=== PATIENT | female | born 1970 | race Two or more races ===

== ENCOUNTER 2017-09-21 15:34 | Emergency (ER) | payer OTHER ==
--- NOTE | 2017-09-21 17:02 | RAD ---
INDICATION: Right knee injury. TECHNIQUE: 2 views of the right knee were obtained. FINDINGS: The bones are in normal alignment. There is a small joint effusion present. No fracture is seen. Joint spaces appear maintained. IMPRESSION: NO EVIDENCE FOR FRACTURE, IF THE PATIENT'S SYMPTOMS PERSIST RECOMMEND FOLLOW-UP IMAGING.
--- NOTE | 2017-09-21 18:08 | ED ---
Lower Extremity - HPI Summary HPI Summary: 46-year-old female presents with right knee injury today. States she hyperextended it yesterday. States she has diffuse knee pain worst on posterior aspect of knee. She states has not been able to place weight on it due to pain. She denies any popping or locking. States the knee feels like it is going to give out. She denies any previous injury to the knee. No numbness or tingling. No other injury. He ibuprofen for pain. 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 She has no medical conditions. - History of Current Complaint Chief Complaint: EDExtremityLower Stated Complaint: RT KNEE INJURY Time Seen by Provider: 09/21/17 17:42 Pain Intensity: 6 - Allergies/Home Medications Allergies/Adverse Reactions: Allergies Allergy/AdvReac Type Severity Reaction Status Date / Time No Known Allergies Allergy Verified 09/21/17 15:53 Home Medications: Home Medications ALPRAZolam TAB* [Xanax TAB*] 0.5 mg PO TID PRN 09/21/17 [History Confirmed 09/21] Sertraline* [Zoloft*] 150 mg PO DAILY 09/21/17 [History Confirmed 09/21/17] PMH/Surg Hx/FS Hx/Imm Hx Endocrine/Hematology History: Denies: Hx Diabetes Cardiovascular History: Denies: Hx Hypertension, Hx Pacemaker/ICD History: Denies: Hx Renal Disease Sensory History: Denies: Hx Hearing Aid Psychiatric History: Denies: Hx Panic Disorder - Cancer History Hx Chemotherapy: No Hx Radiation Therapy: No - Surgical History Surgery Procedure, Year, and Place: 2011,. [facility] - Infectious Disease History: No Infectious Disease History: Denies: Traveled Outside the [place] in Last 30 Days - Family History Known Family History: Positive: Hypertension - Social History Alcohol Use: None Substance Use Type: Reports: None Smoking Status (MU): Current Every Day Smoker Review of Systems Negative: Fever Negative: Chest Pain Negative: Shortness Of Breath Positive: Myalgia - right knee pain All Other Systems Reviewed And Are Negative: Yes Physical Exam Triage Information Reviewed: Yes Vital Signs On Initial Exam: Initial Vitals Temp Pulse Resp BP Pulse Ox 98.4 F 67 17 166/96 97 09/21/17 15:51 09/21/17 15:51 09/21/17 15:51 09/21/17 15:51 09/21/17 15:51 Vital Signs Reviewed: Yes Appearance: Positive: Well-Appearing Skin: Positive: Warm, Dry Head/Face: Positive: Normal Head/Face Inspection Eyes: Positive: Normal, Conjunctiva Clear ENT: Positive: Pharynx normal Respiratory/Lung Sounds: Positive: Clear to Auscultation, Breath Sounds Present Cardiovascular: Positive: Normal, RRR Musculoskeletal: Positive: Limited @ - Right knee, Other - Tenderness over right knee, negative ballottement, negative anterior drawer and negative Leo's, good pulses, sensation grossly intact Neurological: Positive: Normal Psychiatric: Positive: Normal Diagnostics - Vital Signs Vital Signs Temp Pulse Resp BP Pulse Ox 09/21/17 15:51 98.4 F 67 17 166/96 97 - Laboratory Lab Statement: Any lab studies that have been ordered have been reviewed, and results considered in the medical decision making process. - Radiology knee Xray Interpretation: No Acute Changes Radiology Interpretation Completed By: Radiologist Lower Extremity Course/Dx - Course Course Of Treatment: 46-year-old female presents with right knee injury today. States she hyperextended it yesterday. States she has diffuse knee pain worst on posterior aspect of knee. She states has not been able to place weight on it due to pain. She denies any popping or locking. States the knee feels like it is going to give out. She denies any previous injury to the knee. No numbness or tingling. No other injury. He ibuprofen for pain. 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 She has no medical conditions. On exam has tenderness over right knee. Negative ballotments. Negative anterior and mcurray. X-ray shows no fx. gave knee immobilizer will have follow-up with orthopedic. Patient understands and agrees with plan. - Diagnoses Differential Diagnosis/HQI/PQRI: Positive: Fracture (Closed), Sprain, Strain Provider Diagnoses: Right knee pain Discharge - Sign-Out/Discharge Documenting (check all that apply): Patient Departure - Discharge Plan Condition: Good Disposition: HOME Prescriptions: Ibuprofen TAB* [Motrin TAB* 800 MG] 800 mg PO Q6H #20 tab Patient Education Materials: Knee Pain (ED) Referrals: Siva Dunham MD [Primary Care Provider] - Whit Helton MD [Medical Doctor] - Additional Instructions: Keep immobilizer on area, use crutches as needed Take ibuprofen or Tylenol every [address] ice on area Elevate If no improvement in a week follow up with ortho Return to ED if develop any new or worsening symptoms - Billing Disposition and Condition Condition: GOOD Disposition: Home
[2017-09-21 19:17] VITALS: BP 148/82
== END 2017-09-21 19:00 | disposition home or self-care (01) ==
LOC: ED 15:34
DX: S89.91XA Unspecified injury of right lower leg, initial encounter (principal); X50.0XXA Overexertion from strenuous movement or load, initial encounter; Y92.9 Unspecified place or not applicable; F17.200 Nicotine dependence, unspecified, uncomplicated
CPT/HCPCS: 99282

== ENCOUNTER 2018-01-06 13:54 | Day surgery (SDC) | payer OTHER ==
--- NOTE | 2017-12-25 23:11 | HP ---
AMENDED REPORT NOW INCLUDES DESIGNATED COSIGNER PREOPERATIVE HISTORY AND PHYSICAL: DATE OF ADMISSION/SURGERY: 01/06/18 DATE OF OFFICE VISIT: 12/24/17 ATTENDING SURGEON: Dr. Barndan Stewart.* (DICTATED BY MARILU FITZGERALD) PROCEDURE: Right knee arthroscopic surgery, partial meniscectomy. CHIEF COMPLAINT: Right knee pain. HISTORY OF PRESENT ILLNESS: Vibha is a 47-year-old female, who presents to the clinic for followup of right knee injury that occurred on 09/20/17 where she had extended her knee and fell down. She is using immobilizer and is on antiinflammatories. She has failed conservative measures. Therefore, Dr. Stewart got an MRI. She is here for MRI results. She continues to have swelling and a sharp pain in the posterior aspect of her knee and she has some block of range of motion. She denies numbness, tingling, fevers, chills, and is doing well otherwise. PAST MEDICAL HISTORY: Positive for anxiety, depression, and degenerative disk disease of her C-spine. PAST SURGICAL HISTORY: and cervical cerclage. The patient denies prior complications with anesthesia. MEDICATIONS: 1. Zoloft 100 mg 1 by mouth every day. 2. Xanax 0.5 mg 1 by mouth as needed 30 minutes before bed. FAMILY HISTORY: Unknown because she is adopted. SOCIAL HISTORY: She denies tobacco use, alcohol use. She is right-hand dominant. REVIEW OF SYSTEMS: A 14-point review of systems was reviewed with the patient. Positive for current complaint, otherwise negative. Denies fevers, chills, dyspnea, shortness of breath, history of DVT or PE, history of bleeding disorder. PHYSICAL EXAMINATION GENERAL: A 47-year-old, well-developed, well-nourished female, in no acute distress. Alert and oriented x3 with appropriate mood and affect. Appropriate balance and coordination of the lower extremities. VITAL SIGNS: Pulse 88, blood pressure 124/82, respiratory rate 18. HEENT: Normocephalic, atraumatic. PERRLA. Throat: Clear. NECK: Supple. PULMONARY: Lungs are clear to auscultation bilaterally. No wheezing, rhonchi, or rales. CARDIO: Regular rate and rhythm. S1, S2. No murmurs, gallops, or rubs. No edema. ABDOMEN: Positive bowel sounds, soft, nontender. NEURO: Alert and oriented x3. Cranial nerves grossly intact. MUSCULOSKELETAL: Right lower extremity, skin is intact. Moderate effusion. Tenderness over the medial joint line. 1A Audrey with guarding. Range of motion 1 to 90. Stable with varus and valgus stress. +5/5 strength to ankle dorsiflexion and plantar flexion. +2 DP pulse. Sensation is intact to light touch distally. DIAGNOSTIC STUDIES: Multi-view x-rays of the right knee and MRI of the right knee revealed loose body in the suprapatellar bursa as well as degenerative changes in the posterior horn of the medial meniscus and full-thickness hyaline cartilage of the medial femoral condyle. IMPRESSION: Right knee loose body and medial meniscus tear. PLAN: Vibha is a 47-year-old female, who presents to the clinic for followup of right knee pain due to a meniscus tear and loose body. She failed conservative measures and has therefore agreed to undergo right knee arthroscopic surgery and partial meniscectomy with Dr. Stewart on 01/06/18. Percocet will be used for postop pain management. I-STOP was checked and is as expected. She was given a script for Tylenol with Codeine to take in the meantime to help with discomfort at night before surgery. She will follow up in 10 to 14 days postop for followup and suture removal. MARILU FITZGERALD [id number]/[facility] #: [id number] [facility] HOSPITALCharly
[~2018-01-06 13:54] MED LIST: Buffered Lidocaine 0.9% SYRIN* 5 ML/SYR SYRINGE INTRADERM ONE; Dexamethasone TAB* 4 MG PO ONE; DiMENhydriNATE IV* 50 MG/ML VIAL IV PUSH PRN; Famotidine IV* 10 MG/ML 2 ML (20 mg) IV ONE; Morphine VIAL* 4 MG/ML VIAL (1 ml vial) IV PRN; Naloxone* 0.4 MG/ML 1 ML VIAL IV PRN; Ondansetron TAB* 4 MG PO ONE; PROCHLORPERAZINE INJ 5 MG/ML 2 ML VIAL IV PRN; Scopolamine 1.5 mg* PATCH TRANSDERM PRN; fentaNYL* 50 MCG/ML 2 ML VIAL (100 MCG VIAL) IV PRN; oxyCODONE/Acetamin 5/325 MG* TAB PO PRN
[2018-01-06] MEDS ORDERED: ceFAZolin 2 GM PREMIX in ORs 2 GM/50 ML BAG IVPB ONE (14:24)
[2018-01-06] MEDS ORDERED: Famotidine IV* 10 MG/ML 2 ML (20 mg) ONE (14:44)
[2018-01-06] MEDS ORDERED: Ondansetron ODT TAB* 4 MG ONE (14:45)
[2018-01-06] MEDS ORDERED: Dexamethasone TAB* 4 MG ONE (14:45)
[2018-01-06] MEDS ORDERED: Ropivacaine* 2 MG/ML 20 ML VIAL (0.2%) ONE (14:52)
[2018-01-06] MEDS ORDERED: Lidocain 1% EPI 1:100,000 * 30 ML MDV ONE (14:52)
[2018-01-06] MEDS ORDERED: KETAMINE HCL* 50 MG/ML 10 ML VIAL ONE (15:55)
[2018-01-06] MEDS ORDERED: Midazolam* 1 MG/ML 5 ML VIAL (5 MG) ONE (15:55)
[2018-01-06] MEDS ORDERED: fentaNYL* 50 MCG/ML 2 ML VIAL (100 MCG VIAL) ONE (15:55)
[2018-01-06] MEDS ORDERED: Lidocaine 2% PF * 5 ML VIAL ONE (16:16)
[2018-01-06] MEDS ORDERED: hydrALAZINE IV* 20 MG/ML VIAL ONE (16:17)
[2018-01-06] MEDS ORDERED: Propofol* 10 MG/ML 20 ML BTL IV PUSH ONE (16:17)
[2018-01-06] MEDS ORDERED: Labetalol IV* 5 MG/ML 20 ML VIAL ONE (16:17)
[2018-01-06 17:25] VITALS: BP 144/94
--- NOTE | 2018-01-08 14:44 | OP ---
OPERATIVE REPORT: DATE OF OPERATION: 01/06/18 DATE OF : 74 SURGEON: Brandan Stewart MD. REPAIR SERVICER: MARILU Gonzalez. An dental assistant was needed for the entirety of the case to help with positioning, retraction and was utilized throughout all portions of the case. ANESTHESIOLOGIST: Dr. Marin. ANESTHESIA: General. PRE-OP DIAGNOSIS: Right knee medial meniscus tear and loose body. POST-OP DIAGNOSIS: Right knee medial meniscus tear and loose body. OPERATIVE PROCEDURE: 1. Right knee arthroscopy with chondroplasty of the medial femoral condyle and patella. 2. Removal of loose bodies, numerous. 3. Partial lateral and partial medial meniscectomy. COMPLICATIONS: None. ESTIMATED BLOOD LOSS: Minimal. INDICATIONS: Vibha Malloy is a 47-year-old female who sustained an acute injury to her knee when she had catching locking. She has failed conservative management. She elected to proceed with surgical treatment. The risks and benefits of the surgery were discussed in length to include but not limited to bleeding, infection, damage to nerves, vessels, surrounding structures, wound nonhealing, persistent pain, need for further surgery, scarring, stiffness, incomplete relief of symptoms, the risk of anesthesia, risk of DVT. DESCRIPTION OF PROCEDURE: The patient was greeted in the preoperative area by the attending surgeon. Correct extremity was marked and the consent was confirmed. The patient was brought back to the operating suite, where she was placed in supine position on operating table. She underwent general anesthesia with LMA intubation after which an unsterile tourniquet was placed high on the proximal thigh. The lateral post was positioned. The right leg was prepped and draped in usual sterile fashion beginning with chlorhexidine soap scrub and alcohol wipe and a final prep with ChloraPrep. After appropriate surgical pause indicating site, side, procedure and administration of antibiotics, the knee was intraarticularly injected with 1% lidocaine with epi. The anterolateral portal was made sharply and the scope was brought into the joint. The joint was examined. There was abundant erythema of the ACL and PCL but they were intact. There was evidence of grade 2 changes and in some areas of grade 3 changes in the medial femoral condyles and medial plateau had grade 2 changes. There was an unstable medial meniscus tear that is longitudinal as well as a split with an unstable flap. This was then debrided back using the zenon and the biters with care to preserve as much cartilage as possible. There were small loose cartilaginous pieces floating in the joint. The attention was then directed to the chondral flaps this was placed into the gutter in part. The knee was placed in full extension. The patella had grade 0 changes with a small area at the apex that had mild grade 2 changes. This was debrided back using shaver. Medial lateral gutters were intact with small loose debris. The scope was positioned in lateral compartment and lateral subchondral had grade 0 to 1 changes, plateau had grade 1 to 2 changes. Lateral meniscus was intact except for some mild tearing at the periphery. Chondroplasty of the medial femoral condyle had to be done to remove some of the unstable flaps but the remainder of the cartilage was left intact. The knee was then thoroughly lavaged and removed of any loose debris. The remaining meniscus was probed and found to be stable. Wounds were copiously irrigated with sterile saline. Ports were closed with 3-0 nylon interrupted fashion. The knee was intraarticularly injected with 0.25% bupivacaine. Sterile dressings were applied. Cryo/Cuff was applied. She was awoken from anesthesia and transferred to PACU in stable condition. POSTOPERATIVE PLAN: She will be discharged on pain medication. DVT prophylaxis was considered, but deferred due to no previous personal or family history. I will see the patient back in 10 to 14 days. [id number]/[facility] #: [id number] ZARI
[2018-01-09] MEDS ORDERED: Scopolamine PATCH Remove* 1 NOTE MISC PATCH OFF ONE (05:48)
== END 2018-01-06 17:50 | disposition home or self-care (01) ==
LOC: OR 13:54
PROVIDERS: ATTEND Orthopaedic Surgery
DX: S83.241A Other tear of medial meniscus, current injury, right knee, initial encounter (principal); M23.41 Loose body in knee, right knee; F41.8 Other specified anxiety disorders; Z87.891 Personal history of nicotine dependence; X58.XXXA Exposure to other specified factors, initial encounter; Y92.9 Unspecified place or not applicable
CPT/HCPCS: 81025; A9270-GY; J0360; J0690; J2250; J2704; J2795; J3010; J8540

== ENCOUNTER 2018-11-27 15:29 | Emergency (ER) | payer OTHER ==
--- OUTSIDE RECORDS SUMMARY | 2018-11-27 15:48 | XMS REPORT | Continuity of Care Document ---
:1970 External Reference #:[id number] Author Name Julianne Sutton NP Address [address] [place] [address] Care Team Providers Name Role Phone Siva Dunham - Family Medicine Care Team Information Robotics Specialist [phone] Brandan Stewart - Orthopaedic Surgery Care Team Information Robotics Specialist [phone] Problems Active Problems Provider Date Knee pain Siva Dunham M.D. Onset: 12/19/2017 Elevated blood-pressure reading without Siva Dunham M.D. Onset: 2017 diagnosis of hypertension Posttraumatic stress disorder Siva Dunham M.D. Onset: 09/01/2017 Lyme disease Siva Dunham M.D. Onset: 09/12/2016 Myalgia Siva Dunham M.D. Onset: 04/06/2015 Inflammatory polyarthropathy Siva Dunham M.D. Onset: 04/06/2015 Generalized anxiety disorder Siva Dunham M.D. Onset: 04/06/2015 Malaise and fatigue Siva Dunham M.D. Onset: 04/06/2015 Social History Type Date Description Comments Sex Unknown Tobacco Use Start: Unknown Light tobacco smoker (10 or fewer cigarettes/day) ETOH Use Denies alcohol use Tobacco Use Start: Unknown Patient is a current smoker, 2-3 a day , has quit x 6 smokes every day mos- 1yr Allergies, Adverse Reactions, Alerts Active Allergies Reaction Severity Comments Date NKDA 10/20/2010 Seasonal 07/12/2015 Medications Active Medications SIG Qnty Indications Ordering Provider Date Penicillin V take one by mouth 30tabs G50.1 Julianne Jones 11/25/2018 Potassium 2 times daily Herman, PAINTING WORKER 500mg until gone Tablets Ibuprofen take one by mouth 60tabs G50.1 Julianne C. 11/25/2018 600mg up to 3 times per Herman, PAINTING WORKER Tablets day as needed for pain Naproxen 1 by mouth twice a 60tabs Siva Dunham, 08/16/2015 500mg day with food as M.D. Tablets needed Voltaren apply 4gm to 1units Jyoti 07/31/2015 1% Gel painful area four [place], CAREER EDUCATION TEACHER times a day Vitamin D take 1 capsule by 4caps Siva Dunham, 04/14/2015 (Ergocalciferol) mouth every M.D. thursday [id number] Capsules Alprazolam 1 by mouth three 90tabs F41.9 iSva Dunham, 10/23/2014 0.5mg times a day as M.D. Tablets needed anxiety Sertraline HCL Take 1 And 1/2 45tabs F41.9 Siva Dunham, 10/23/2014 100mg Tablets By Mouth M.D. Tablets One Time Daily History Medications Azithromycin Take 1 Tablet 30tabs R53.83 Siva Dunham, 06/15/2018 - 500mg By Mouth Every M.D. 11/25/2018 Tablets Day Medications Administered in Office Medication SIG Qnty Indications Ordering Provider Date Injection Subcutaneous Or Jyoti Lowry, 02/22/2004 Intramuscular M.D. Injection Immunizations CPT Code Status Date Vaccine Lot # [id number] Given 02/07/2000 DO Not Use Split Influenza Virus Vaccine Vital Signs Date Vital Result Comment 11/25/2018 5:00pm BP Systolic 140 mmHg BP Diastolic 88 mmHg Heart Rate 80 /min Body Temperature 99.8 F Respiratory Rate 16 /min Weight 182.00 lb 06/15/2018 12:51pm BP Systolic 150 mmHg BP Diastolic 90 mmHg Heart Rate 80 /min Body Temperature 97.5 F Respiratory Rate 20 /min Weight 198.00 lb Results Description No Information Available Procedures Date Code Description Status 01/10/2015 01400768 Mammogram Completed 01/18/2014 [id number] Mammogram Completed 01/13/2014 [id number] Mammogram Completed Medical Devices Description No Information Available Encounters Type Date Location Provider Dx Diagnosis Office Visit 06/15/2018 Main Office Siva Dunham, F41.1 Generalized anxiety 1:00p M.D. disorder F43.12 Post-traumatic stress disorder, chronic R03.0 Elevated blood-pressure reading, w/o diagnosis of htn R53.83 Other fatigue Assessments Date Code Description Provider 11/25/2018 G50.1 Atypical facial pain Julianne Sutton, LYLY 11/25/2018 K05.00 Acute gingivitis, plaque induced Julianne Sutton, PAINTING WORKER 11/25/2018 K04.7 Periapical abscess without sinus Julianne Sutton, LYLY 06/15/2018 F41.1 Generalized anxiety disorder Siva Dunham M.D. 06/15/2018 F43.12 Post-traumatic stress disorder, chronic Siva Dunham M.D. 06/15/2018 R03.0 Elevated blood-pressure reading, without Siva Dunham M.D. diagnosis of hypert 06/15/2018 R53.83 Other fatigue Siva Dunham M.D. Plan of Treatment 11/25/2018 - Julianne Sutton, NPG50.1 Atypical facial painNew Medication: Penicillin V Potassium 500 mg - take one by mouth 2 times daily until goneIbuprofen 600 mg - take one by mouth up to 3 times per day as needed for painComments:Please follow-up with your dentist at your earliest convenience.K05.00 Acute gingivitis, plaque hmkuqdvV20.7 Periapical abscess without sinusAllComments:1. Patient has been queried about patient's goals/ preferences and functional/lifestyle goals at relevant visits. If relevant, describe: Has been discussed, noted above2. Treatment goals as explainedto the patient: see above3. Are there barriers to meeting treatment goals? Yes If Yes, please describe: Barriers include possible insurance limits, disease process, and difficulty with lifestyle changes4. Self-Management goals as described to the patient: Yes, see above As always, we strongly encourage a healthy diet and making physical activity a part of your every day life. If you have questions about how or where to start, please contact the office. Functional Status Description No Information Available Mental Status Description No Information Available Referrals Description No Information Available
[2018-11-27] MEDS ORDERED: Clindamycin 600 MG/D5W BAG(*) 600 MG/50 ML BAG IV ONE (16:24)
[2018-11-27] MEDS ORDERED: Ketorolac INJ* 30 MG/ML 1 ML VIAL IV PUSH ONE (16:24)
[2018-11-27 17:13] LABS: ABS Basophils 0.1 10^3/ul (0-0.2); ABS Lymphocytes 2.4 10^3/ul (1.0-4.8); ABS Monocytes 0.7 10^3/ul (0-0.8); ABS Neutrophils 5.9 10^3/ul (1.5-7.7); Eosinophil % 0.5 %; Hematocrit 43 % (35-47); Hemoglobin 14.6 g/dL (12.0-16.0); Lymphocyte % 26.4 %; Mean Corpuscular HGB Conc 35 g/dL (31-36); Mean Corpuscular Hemoglobin 30 pg (27-31); Mean Corpuscular Volume 88 fL (80-97); Mean Platelet Volume 7.6 fL (7.4-10.4); Platelet Count 238 10^3/uL (150-450); Red Blood Count 4.82 10^6 /uL (3.70-4.87); Red Cell Distribution Width 15 % (10-15); White Blood Count 9.1 10^3/uL (3.5-10.8)
[2018-11-27 17:32] LABS: Albumin 3.9 g/dL (3.2-5.2); Albumin/Globulin Ratio 1.4 (1-3); BUN/Creatinine Ratio 15.6 (8-20); C Reactive Protein 10.73 mg/L (<8.01); Calcium 8.8 mg/dL (8.6-10.3); EGFR African American 121.4 (>60); EGFR Non-African American 100.3 (>60); Globulin 2.8 g/dL (2-4); Potassium 3.8 mmol/L (3.5-5.0); Total Bilirubin 0.4 mg/dL (0.2-1.0); Total Protein 6.7 g/dL (6.4-8.9)
--- NOTE | 2018-11-27 17:48 | ED ---
Throat Pain/Nasal Congestion - HPI Summary HPI Summary: 47 year old F presents to [facility] with a chief complaint of gross swelling to the left face onsetting 4 days ago. She saw her PCP on two days for a toothache and was placed on Penicillin 500 mg for a possible infection, but since then the swelling and pain have gotten worse and has spread to her cheek and jaw. The pain worsened today, and is now a 9/10 in pain severity. Patient denies difficulty swallowing. She takes ASA for the pain, to no avail. She has no PMHx of DM, HTN, or HLD. PMHx of anxiety is noted, patient is on Zoloft. She has had PSHx for her right meniscus. FMHx is unknown, patient is adopted. - History of Current Complaint Chief Complaint: EDDentalPain Time Seen by Provider: 11/27/18 16:14 Hx Obtained From: Patient Onset/Duration: Gradual Onset, Lasting Days, Still Present, Worse Since - Today Severity: Severe Associated Signs And Symptoms: Negative: Dysphagia Cough: None - patient does not report having a cough - Allergies/Home Medications Allergies/Adverse Reactions: Allergies Allergy/AdvReac Type Severity Reaction Status Date / Time No Known Allergies Allergy Verified 11/27/18 15:37 PMH/Surg Hx/FS Hx/Imm Hx Endocrine/Hematology History: Denies: Hx Diabetes Cardiovascular History: Denies: Hx Hypertension, Hx Pacemaker/ICD History: Denies: Hx Renal Disease Musculoskeletal History: Reports: Hx Arthritis - KNEES, NECK, HIPS Sensory History: Reports: Hx Contacts or Glasses - GLASSES Denies: Hx Hearing Aid Opthamlomology History: Reports: Hx Contacts or Glasses - GLASSES Psychiatric History: Reports: Hx Anxiety - PRN MEDICATION FOR, Hx Depression - ON MEDICATION FOR Denies: Hx Panic Disorder - Cancer History Hx Chemotherapy: No Hx Radiation Therapy: No - Surgical History Surgery Procedure, Year, and Place: 1999-[facility] [place]. [place], . 2011 ESSURE DEVICE - CONDTIONAL 6- 1.5 TO 3T - ( PT HAS A CARD - MAKE A COPY) . D & C Hx Anesthesia Reactions: Yes - [id number] WAS UNABLE TO TURN HEAD-WITH MORPHINE Infectious Disease History: No Infectious Disease History: Denies: Traveled Outside the [place] in Last 30 Days - Family History Known Family History: Positive: Unknown - FMHx is unknown as patient is adopted. - Social History Alcohol Use: None Substance Use Type: Reports: Marijuana Substance Use Comment - Amount & Last Used: DAILY Smoking Status (MU): Former Smoker Amount Used/How Often: <1 PPD X 15 YEARS Have You Smoked in the Last Year: Yes Review of Systems Positive: Dental Pain. Negative: Other - difficulty swallowing Positive: Edema All Other Systems Reviewed And Are Negative: Yes Physical Exam - Summary Physical Exam Summary: VITAL SIGNS: Reviewed. GENERAL: Patient is a well-developed and nourished male who is lying comfortable in the stretcher. Patient is not in any acute respiratory distress. HEAD AND FACE: No signs of trauma. No ecchymosis, hematomas or skull depressions. No sinus tenderness. Right facial edema. EYES: PERRLA, EOMI x 2, No injected conjunctiva, no nystagmus. EARS: Hearing grossly intact. Ear canals and tympanic membranes are within normal limits. MOUTH: Oropharynx within normal limits. Large cavities in teeth 18 and 19. No trismus. No tongue or lip swelling. Nothing obstructing throat. NECK: Supple, trachea is midline, no adenopathy, no JVD, no carotid bruit, no c- spine tenderness, neck with full ROM. CHEST: Symmetric, no tenderness at palpation. LUNGS: Clear to auscultation bilaterally. No wheezing or crackles. CVS: Regular rate and rhythm, S1 and S2 present, no murmurs or gallops appreciated. ABDOMEN: Soft, non-tender. No signs of distention. No rebound, no guarding, and no masses palpated. Bowel sounds are normal. EXTREMITIES: FROM in all major joints, no edema, no cyanosis or clubbing. NEURO: Alert and oriented x 3. No acute neurological deficits. Speech is normal and follows commands. SKIN: Dry and warm. Triage Information Reviewed: Yes Vital Signs On Initial Exam: Initial Vitals Temp Pulse Resp BP Pulse Ox 98.2 F 92 18 184/119 97 11/27/18 15:33 11/27/18 15:33 11/27/18 15:33 11/27/18 15:33 11/27/18 15:33 Vital Signs Reviewed: Yes Diagnostics - Vital Signs Vital Signs Temp Pulse Resp BP Pulse Ox 11/27/18 15:33 98.2 F 92 18 184/119 97 - Laboratory Lab Results: Lab Results 11/27/18 11/27/18 11/27/18 Range/Units 17:07 17:07 17:07 WBC 9.1 (3.5-10.8) 10^3/uL RBC 4.82 (3.70-4.87) 10^6 /uL Hgb 14.6 (12.0-16.0) g/dL Hct 43 (35-47) % MCV 88 (80-97) fL MCH 30 (27-31) pg MCHC 35 (31-36) g/dL RDW 15 (10-15) % Plt Count 238 (150-450) 10^3/uL MPV 7.6 (7.4-10.4) fL Neut % (Auto) 65.1 % Lymph % (Auto) 26.4 % Owen % (Auto) 7.3 % Eos % (Auto) 0.5 % Baso % (Auto) 0.7 % Absolute Neuts (auto) 5.9 (1.5-7.7) 10^3/ul Absolute Lymphs (auto) 2.4 (1.0-4.8) 10^3/ul Absolute Monos (auto) 0.7 (0-0.8) 10^3/ul Absolute Eos (auto) 0.0 (0-0.6) 10^3/ul Absolute Basos (auto) 0.1 (0-0.2) 10^3/ul Absolute Nucleated RBC 0.0 10^3/ul Nucleated RBC % 0.0 Sodium 135 (135-145) mmol/L Potassium 3.8 (3.5-5.0) mmol/L Chloride 107 (101-111) mmol/L Carbon Dioxide 24 (22-32) mmol/L Anion Gap 4 (2-11) mmol/L BUN 10 (6-24) mg/dL Creatinine 0.64 (0.51-0.95) mg/dL Est GFR ( Amer) 121.4 (>60) Est GFR (Non-Af Amer) 100.3 (>60) BUN/Creatinine Ratio 15.6 (8-20) Glucose 99 (70-100) mg/dL Lactic Acid 0.7 (0.5-2.0) mmol/L Calcium 8.8 (8.6-10.3) mg/dL Total Bilirubin 0.40 (0.2-1.0) mg/dL AST 12 L (13-39) U/L ALT 9 (7-52) U/L Alkaline Phosphatase 56 (34-104) U/L C-Reactive Protein 10.73 H (<8.01) mg/L Total Protein 6.7 (6.4-8.9) g/dL Albumin 3.9 (3.2-5.2) g/dL Globulin 2.8 (2-4) g/dL Albumin/Globulin Ratio 1.4 (1-3) Result Diagrams: 11/27/18 17:07 11/27/18 17:07 Lab Statement: Any lab studies that have been ordered have been reviewed, and results considered in the medical decision making process. EENT Course/Dx - Course Assessment/Plan: Patient is a 47-year-old female who presents to the emergency room with a chief complaint of dental pain and facial swelling. The patient denies any trismus, swelling of the tongue, swelling of the lips or feeling like her throat is closing. Patient has significant cavities and the left lower molars. Blood test results without any significant abnormality except for CRP of 10.7. Patient was given clindamycin and Toradol for the pain. The patients symptoms improved. Therefore she will be discharged home with a prescription for clindamycin. She will follow-up with her dentist as soon as possible. Patient is hemodynamically stable alert oriented 3. I discussed all the findings and test results with the patient. Patient was instructed to return to the emergency room immediately if any of the symptoms return or worsen. Plan of care was discussed with the patient and understands and agrees. All questions were answered at patient satisfaction. There were no further complaints or concerns. Lung exam before discharge: CTA B/L. Good air exchange. No wheezing or crackles heard. CVS: S1 and S2 present. No murmurs appreciated. Patient is alert and oriented x 3. Patient is hemodynamically stable. Patient will be discharged home with follow up PCP in the next 2-3 days - Diagnoses Provider Diagnoses: Pain, dental, Dental caries Discharge ED - Sign-Out/Discharge Documenting (check all that apply): Patient Departure - discharge Patient Received Moderate/Deep Sedation with Procedure: No - Discharge Plan Condition: Stable Disposition: HOME Prescriptions: Clindamycin Cap(NF) [Clindamycin Cap 300 mg Cap(NF)] 300 mg PO TID #30 cap Patient Education Materials: Dental Abscess (ED) Referrals: Siva Dunham MD [Primary Care Provider] - JORGE ANTUNEZ [Doctor of Dental Surgery] - Additional Instructions: Follow up with dentist in 2-3 days. Return to the Emergency Room for new or worsening symptoms. - Billing Disposition and Condition Condition: STABLE Disposition: Home - Attestation Statements Document Initiated by Scribe: Yes Documenting Scribe: KATE MAXWELL Provider For Whom Scribe is Documenting (Include Credential): SORAIDA HODGE MD Scribe Attestation: KATE Ye, scribed for SORAIDA HODGE MD on 11/29/18 at 1114. Scribe Documentation Reviewed: Yes Provider Attestation: The documentation as recorded by the KATE harris accurately reflects the service I personally performed and the decisions made by SORAIDA graves MD Status of Scribe Document: Viewed
[2018-11-27 18:13] VITALS: BP 120/75
== END 2018-11-27 18:05 | disposition home or self-care (01) ==
LOC: ED 15:29
DX: K02.9 Dental caries, unspecified (principal); F41.9 Anxiety disorder, unspecified; F32.9 Major depressive disorder, single episode, unspecified; Z87.891 Personal history of nicotine dependence; Z79.899 Other long term (current) drug therapy
CPT/HCPCS: 36415; 80053; 83605; 85025; 86140; 87040; 96365; 96375; 99283; J1885